=== PATIENT | female | born 1985 | race African-American/Black ===

== ENCOUNTER 2016-09-25 07:30 | Emergency (ER) | payer OTHER ==
[~2016-09-25] VITALS: Ht 165.1 cm; Wt 103.0 kg
[2016-09-25] MEDS ORDERED: KETOROLAC 60MG/2ML VIAL IM ONE (09:15)
[2016-09-25] MEDS ORDERED: TETANUS, DIPHTHERIA, PERTUSSIS VAC/PF 0.5ML (>7YR OLD) IM ONE (09:15)
[2016-09-25 11:00] VITALS: BP 100/61
== END 2016-09-25 11:01 | disposition home or self-care (01) ==
LOC: ER 07:30
DX: S16.1XXA Strain of muscle, fascia and tendon at neck level, initial encounter (principal); S80.211A Abrasion, right knee, initial encounter; F17.200 Nicotine dependence, unspecified, uncomplicated; V89.2XXA Person injured in unspecified motor-vehicle accident, traffic, initial encounter; Y93.89 Activity, other specified; Y92.89 Other specified places as the place of occurrence of the external cause; Y99.8 Other external cause status
CPT/HCPCS: 81025; 90471; 90715; 96372; 99284; J1885; Z7610

== ENCOUNTER 2019-04-11 18:09 | Emergency (ER) | payer OTHER ==
[~2019-04-11] VITALS: Ht 165.1 cm; Wt 91.0 kg
[2019-04-11 19:00] VITALS: BP 153/93
== END 2019-04-12 00:34 | disposition left against medical advice (07) ==
LOC: ER 18:09
DX: Z53.21 Procedure and treatment not carried out due to patient leaving prior to being seen by health care provider (principal)

== ENCOUNTER 2022-04-11 00:50 | Emergency (ER) | payer MEDICAID, OTHER ==
[~2022-04-11] VITALS: Ht 165.1 cm; Wt 91.0 kg
[2022-04-11 01:22] VITALS: BP 125/80
[2022-04-11] MEDS ORDERED: IBUP-2029 MT (02:12)
[2022-04-11] MEDS ORDERED: T3 PO (02:12)
[2022-04-11] MEDS ORDERED: AMOX-494 MT (02:12)
== END 2022-04-11 02:25 | disposition home or self-care (01) ==
LOC: ER 00:50
DX: K08.89 Other specified disorders of teeth and supporting structures (principal); Z98.890 Other specified postprocedural states
CPT/HCPCS: 99283